=== PATIENT | female | born 1990 | race African-American/Black ===

== ENCOUNTER 2021-03-19 20:17 | Emergency (ER) | payer OTHER ==
[~2021-03-19] VITALS: Ht 167.6 cm; Wt 57.0 kg
[2021-03-19 20:22] VITALS: BP 149/98
== END 2021-03-19 22:37 | disposition home or self-care (01) ==
LOC: ER 20:17
DX: Z00.00 Encounter for general adult medical examination without abnormal findings (principal); D64.9 Anemia, unspecified
CPT/HCPCS: 99283